=== PATIENT | female | born 1965 | race African-American/Black ===

== ENCOUNTER 2017-03-26 14:53 | Observation (INO) | payer BC, OTHER ==
--- NOTE | ~2017-03-26 | DS ---
Discharge Summary [facility] [address] [place]. [address] NAME: MONI BOURNE : 63 STATUS : DIS Rox PAT#: [id number] AGE: 52 ADM/REG DATE : 03/26/17 MR#: [id number] REPORT SERV DATE: 03/29/17 DICTATED BY: ZHANE WILLIAMSON DATE: 03/28/17 REPORT STATUS : Draft TRANSCRIBED BY: KELVIN DATE: 03/28/17 ADMISSION DATE: 03/26/2017 DISCHARGE DATE: 03/28/2017 DISCHARGE DIAGNOSES: Include: 1. Hypertension urgency. 2. Chest pain. 3. Palpitations. 4. Anxiety. 5. Leukocytosis. 6. Obesity. 7. Questionable obstructive sleep apnea. DISCHARGE MEDICATIONS: Are as follows: aspirin 81 mg daily, Prinivil 40 mg daily, Lopressor 25 mg p.o. twice a day, and prescriptions were written for those blood pressure medicines. HISTORY OF PRESENT ILLNESS: A pleasant 52-year-old, female, who presented with chest pain, shortness of breath, and hypertension. Please see initial H and P of Dr. Deshawn Veloz as patient was admitted to the Hospitalist Service for further evaluation and treatment. Lab work was ordered and followed including cardiac enzymes, and she was admitted for further rule out of her chest pain and control of her high blood pressure. PROCEDURES AND IMAGING DURING THIS ADMISSION: Include a nuclear myocardial imaging study that was an overall low risk stress test. Postexercise LVEF greater than 60%. No ischemia that is demonstrated. Also an echocardiogram which showed an ejection fraction of 55%, mild LVH but no significant valvular regurg or stenosis noted. CONTINUATION OF HOSPITAL COURSE: The patient was followed closely and underwent the above described imaging studies. She was given blood pressure medicine which did improve her overall blood pressures, and she described in interview sensations of shortness of breath particularly at night and when she woke up in the morning some gasping. She relates that she snores quite heavily and has a strong family history of obstructive sleep apnea so I have recommended her having outpatient sleep study. She did report that she does not currently have a primary care, and I have instructed her to follow up [facility] to establish a primary care within the next 2-3 weeks for review of her blood pressures to further discuss the medications and for this outpatient sleep study. Her symptoms of chest pain, shortness of breath, palpitations have resolved, and she was felt safe for discharge home on 03/28/2017 with the above medication regimen followup plan. Questions were answered at bedside, and the patient was in agreement with this plan going forward. MICHELLE/KELVIN Discharge Summary [address] [address] NAME: MONI BOURNE : 63 STATUS : DIS Rox PAT#: [id number] AGE: 52 ADM/REG DATE : 03/26/17 MR#: [id number] REPORT SERV DATE: 03/29/17 DICTATED BY: ZHANE WILLIAMSON DATE: 03/28/17 REPORT STATUS : Draft TRANSCRIBED BY: KELVIN DATE: 03/28/17 Zhane Williamson NP / [id number] CC: Hugh Dunbar
--- NOTE | ~2017-03-26 | HP ---
History And Physical [place] [address] [facility] [place]. [address] NAME: MONI BOURNE : 63 STATUS : ADM Rox PAT#: [id number] AGE: 52 ADM/REG DATE : 03/26/17 MR#: [id number] REPORT SERV DATE: 03/26/17 DICTATED BY: DESHAWN VELOZ DATE: 03/26/17 REPORT STATUS : Draft TRANSCRIBED BY: MODL DATE: 03/26/17 DATE OF ADMISSION: 03/26/2017 CHIEF COMPLAINT: Chest pain and shortness of breath. HISTORY OF PRESENT ILLNESS: Obtained from the patient as well as from the emergency room documents. There are no real prior medical records available for us to review. According to the information available, the patient is a pleasant 52-year-old black woman with upper and prior history of hypertension, on no medications presently, with no regular followup, who comes into the emergency room complaining of chest pain and shortness of breath. The patient stated the symptoms started on 03/23/2017, after she walked up some stairs. The patient complained of chest tightness, tightness over the left shoulder, worsening with exertion and relieved by rest. The pain was radiating toward the left shoulder and the back of the left shoulder, pressure-like, associated with palpitations and sweating. There is no fever or chills. No coughing reported. Generalized fatigue, not feeling well. The patient took recently antibiotics for a tooth infection and she was taking epif-xji-soqhgci aspirin on and off, last dose was on the day of admission. Because of her symptoms continuing to get progressively worse, the patient decided today to come to the emergency room. Upon arrival in the emergency room, the patient was noticed to have a blood pressure from 173 systolic up to 205 systolic and she had received treatment with hydralazine IV. She continued to complain of chest discomfort and feeling of "fluttering" in her chest and had remained extremely anxious about her condition. Because of the above presentation and risk factors, the patient was referred to the Hospitalist Service for further management and evaluation. PAST MEDICAL HISTORY: Apparently significant for hypertension, no medication. Please note, the patient had a prior stress test somewhere in 2011 that was apparently negative and she stated that she had an arteriogram/cardiac cath over 15 or 20 years ago. PAST SURGICAL HISTORY: Significant for cholecystectomy and D and C in the past. FAMILY HISTORY: Significant for CHF, cardiomyopathy, coronary artery disease, and diabetes. SOCIAL HISTORY: She lives with her family. She does not smoke. Denies alcohol abuse. Denies illicit or recreational drug abuse. ALLERGIES: NO KNOWN DRUG ALLERGIES. HOME MEDICATIONS: No regular prescribed home medications. Takes bycj-dbr-bhpetbt aspirin occasionally. REVIEW OF SYSTEMS: Per H and P, otherwise negative in all review of systems. Please note, the comprehensive review of system was obtained and pertinent positives were including in the H and P. PHYSICAL EXAMINATION: History And Physical [address] [address] NAME: MONI BOURNE : 63 STATUS : ADM Rox PAT#: [id number] AGE: 52 ADM/REG DATE : 03/26/17 MR#: [id number] REPORT SERV DATE: 03/26/17 DICTATED BY: DESHAWN VELOZ DATE: 03/26/17 REPORT STATUS : Draft TRANSCRIBED BY: KELVIN DATE: 03/26/17 GENERAL: Pleasant, cooperative, anxious. VITAL SIGNS: Upon arrival to the emergency room, blood pressure 173/98. Please note, the patient had a blood pressure of 212/105 during her initial stay and she had received IV hydralazine. Pulse 92. Respiratory rate 16. Temperature 98.5. Oxygen saturation 99% on room air. HEENT: Pupils are equal, round, and reactive to light. Extraocular movements are intact. Slight exophthalmos noticed. Throat, mild erythema. No exudate. No signs of tenderness. NECK: Supple. No JVD. No bruits. No thyromegaly. No lymph nodes. LUNGS: Bilateral air entry with few bibasilar rales. No wheezing. Good airway movement. HEART: Positive S1, S2. Regular rate and rhythm. Positive soft mitral regurgitation murmur at the apex. PMI nondisplaced by palpation. Slight reproducible chest pain upon palpation of the left precordial area. ABDOMEN: Positive bowel sounds. Soft, nontender. No guarding. No hepatosplenomegaly. Obese. EXTREMITIES: Decreased range of motion. No clubbing. No cyanosis. No edema. No calf tenderness. +2 pulses. NEUROLOGIC: Alert and oriented x3. Grossly nonfocal. Cranial nerves II through XII are grossly intact. Motor strength 5/5 symmetrical bilaterally. Deep tendon reflexes are 2/2 symmetrical bilaterally. BACK: Decreased range of motion, but no focal or localized tenderness. No CVA tenderness. SKIN: No rashes. No lacerations. SIGNIFICANT LABORATORY DATA: Chest x-ray (personal reading) showed no acute infiltrate, possible cardiomegaly. EKG (personal reading) showed normal sinus rhythm at 88 beats per minute. No acute ST elevation. Sodium 141, potassium 3.5, chloride 106, bicarb 28, BUN 10, creatinine 0.56, glucose 91, calcium 9.4, magnesium 2. Troponin I is less than 0.02. White cell count 11.1, hemoglobin 12.8, platelet count 408, INR 1.0. ASSESSMENT AND PLAN AND PROBLEM LIST: The patient is a pleasant 52-year-old black woman with chest pain and hypertensive urgency. IMPRESSION: 1. Cardiovascular. a. Hypertensive urgency. b. Chest pain with moderate risk factors for cardiac etiology. See cardiomegaly by chest x-ray. c. Palpitations by history. For all the above, we are going to admit the patient under telemetry setting under CDOU (clinical decision and observation unit). We are going to rule out for myocardial infarction by serial CK and troponin I, serial EKG, and we are going to continue treatment of her elevated blood pressure. Continue aspirin 162 mg p.o. daily and continue further assessment of cardiac risk factors including lipid profile. Check a 2D echo in a.m. and obtain nuclear medical stress test in a.m. 1. Anxiety, possible thoughts of her presentation. Provide emotional support. Continue to further evaluate to see if she needs long-term treatment. 2. Leukocytosis, elevated white cell count, uncertain etiology. No overt signs of History And Physical [address] [address] NAME: MONI BOURNE : 63 STATUS : ADM Rox PAT#: [id number] AGE: 52 ADM/REG DATE : 03/26/17 MR#: [id number] REPORT SERV DATE: 03/26/17 DICTATED BY: DESHAWN VELOZ DATE: 03/26/17 REPORT STATUS : Draft TRANSCRIBED BY: MODL DATE: 03/26/17 clinical infection at this moment. We are going to monitor likely reactive/leukemoid reaction. 3. Obesity. Recommended weight loss and moderate, structured exercise. PROGNOSIS: Good for this admission. Discussed with patient and patient's family. The questions were answered in full. Please note, the patient is a full code at this moment as discussed with the patient at bedside. Please note, also the written H and P and written orders and instructions. RF/MODL Deshawn Veloz M.D. / [id number] CC: Hugh Dunbar NP
[2017-03-26 14:01] LABS: BASOPHILS 0.4 %; BASOPHILS ABSOLUTE 0.04 10/3/uL (0.0-0.16); EOSINOPHILS 1.8 %; ER CBC TAT 0 Hrs 03 Mins; HEMATOCRIT 37.2 % (36.0-48.0); HEMOGLOBIN 12.8 g/dL (12.0-16.0); IMMATURE GRANULOCYTES 0.3 %; IMMATURE GRANULOCYTES ABSOLUTE 0.03 10/3/uL (0.0-0.11); LYMPHOCYTES 30.6 %; MEAN CORPUSCULAR HEMOGLOB 33.5 pg (26.0-34.0); MEAN CORPUSCULAR VOLUME 97.4 fL (80-100); MEAN PLATELET VOLUME 9.7 fL (9.2-13.0); MONOCYTES 4.9 %; MONOCYTES ABSOLUTE 0.54 10/3/uL (0.21-1.20); NEUTROPHILS ABSOLUTE 6.91 10/3/uL (2.02-8.40); PLATELET COUNT 408 10/3/uL (150-400); RBC DISTRIBUTION WIDTH 13.1 % (12.0-16.0); RED CELL COUNT 3.82 10/6/uL (4.0-5.6); WHITE BLOOD CELLS 11.1 10/3/uL (4.5-10.5)
[2017-03-26 14:02] LABS: MANUAL DIFF NO %; MEAN CORPUS HGB CONC 34.4 g/dL (32.0-36.0)
[2017-03-26 14:07] LABS: PROTIME (NOT ORD) 13.4 SEC (12.0-14.5)
[2017-03-26 14:08] LABS: PARTIAL THROMBO TIME 27.6 SEC (22.5-37.2)
[2017-03-26 14:16] LABS: BUN (BLOOD UREA NITROGEN) 10 MG/DL (6-23); CALCIUM, SERUM 9.4 MG/DL (8.5-10.4); CHEST PAIN PROFILE TAT 0 Hrs 18 Mins; CHLORIDE, SERUM 106 MMOL/L (96-112); CO2 (CARBON DIOXIDE) 28 MMOL/L (24-34); CREATININE 0.56 MG/DL (0.55-1.02); GFR AFRICAN AMERICAN 123 ML/MIN (>=60); GFR NON AFRICAN AMERICAN 106 ML/MIN (>=60); GLUCOSE, SERUM 91 MG/DL (60-99); POTASSIUM, SERUM 3.5 MMOL/L (3.5-5.3); SODIUM, SERUM 141 MMOL/L (135-148); TROPONIN I <0.02 NG/ML (<0.05)
[~2017-03-26 14:53] MED LIST: ASAB PO; GOODY'S EX-STR1 EAC1 PO; NEXIUM40 PO; PROTONIX PO
[2017-03-26 19:44] LABS: FREE T4 1.18 NG/DL (0.76-1.46); PHOSPHORUS, SERUM 2.7 MG/DL (2.5-4.5)
[2017-03-26 19:48] LABS: ULTRASENSITIVE TSH 0.782 MCIU/ML (0.358-3.740)
[2017-03-26 20:37] LABS: WBC (NOT ORDERED) (RFLEX) 0 (0-5)
[2017-03-26 20:59] LABS: ASCORBIC ACID (UR NOT ORDER) NEG (NEG); BILIRUBIN, URINE NEGATIVE (NEG); KETONE, URINE TRACE MG/DL (NEG); LEUKOCYTE ESTERASE(NOT OR NEG (NEG)
[2017-03-26 21:03] LABS: CPK 328 U/L (0-200); TROPONIN I <0.02 NG/ML (<0.05)
[2017-03-26 21:04] LABS: CK-MB 4.2 NG/ML
[2017-03-27 06:17] LABS: BASOPHILS 0.4 %; BASOPHILS ABSOLUTE 0.04 10/3/uL (0.0-0.16); EOSINOPHILS 2.6 %; EOSINOPHILS ABSOLUTE 0.29 10/3/uL (0.0-0.53); HEMATOCRIT 34.8 % (36.0-48.0); HEMOGLOBIN 11.9 g/dL (12.0-16.0); IMMATURE GRANULOCYTES 0.4 %; IMMATURE GRANULOCYTES ABSOLUTE 0.05 10/3/uL (0.0-0.11); LYMPHOCYTES ABSOLUTE 3.71 10/3/uL (0.67-4.30); MEAN CORPUS HGB CONC 34.2 g/dL (32.0-36.0); MEAN CORPUSCULAR HEMOGLOB 33.3 pg (26.0-34.0); MEAN CORPUSCULAR VOLUME 97.5 fL (80-100); MEAN PLATELET VOLUME 9.8 fL (9.2-13.0); MONOCYTES 6.5 %; MONOCYTES ABSOLUTE 0.73 10/3/uL (0.21-1.20); NEUTROPHILS 57.1 %; NEUTROPHILS ABSOLUTE 6.42 10/3/uL (2.02-8.40); PLATELET COUNT 405 10/3/uL (150-400); RBC DISTRIBUTION WIDTH 13.4 % (12.0-16.0); RED CELL COUNT 3.57 10/6/uL (4.0-5.6); WHITE BLOOD CELLS 11.2 10/3/uL (4.5-10.5)
[2017-03-27 06:19] LABS: MANUAL DIFF NO %
[2017-03-27 06:31] LABS: ALBUMIN 3.4 G/DL (3.5-5.0); BUN (BLOOD UREA NITROGEN) 13 MG/DL (6-23); CALCIUM, SERUM 9.1 MG/DL (8.5-10.4); CHLORIDE, SERUM 106 MMOL/L (96-112); CHOL/HDL RATIO(NOT ORDER) 3.7 (0-5); CHOLESTEROL 152 MG/DL (< 200); CO2 (CARBON DIOXIDE) 28 MMOL/L (24-34); CPK 272 U/L (0-200); CREATININE 0.62 MG/DL (0.55-1.02); GFR AFRICAN AMERICAN 119 ML/MIN (>=60); GFR NON AFRICAN AMERICAN 103 ML/MIN (>=60); GLUCOSE, SERUM 91 MG/DL (60-99); HDL CHOLESTEROL 41 MG/DL (> 49); LDL CHOLESTEROL 81 MG/DL (< 130); NON-HDL CHOLESTEROL 111 MG/DL (< 160); PHOSPHORUS, SERUM 2.7 MG/DL (2.5-4.5); POTASSIUM, SERUM 3.3 MMOL/L (3.5-5.3); SGOT(AST) 13 U/L (5-40); SGPT(ALT) 15 U/L (5-65); SODIUM, SERUM 141 MMOL/L (135-148); TOTAL BILIRUBIN 0.6 MG/DL (0-1.2); TOTAL PROTEIN 7.2 G/DL (6.0-8.5); TRIGLYCERIDE 152 MG/DL (< 150)
[2017-03-27 06:33] LABS: ALKALINE PHOSPHATASE 80 U/L (45-117); CK-MB 3.4 NG/ML; DIRECT BILIRUBIN 0.1 MG/DL (0.0-0.4); INDIRECT BILIRUBIN(NOT ORDER) 0.5 MG/DL (0.1-0.9)
[2017-03-28 05:58] LABS: BUN (BLOOD UREA NITROGEN) 12 MG/DL (6-23); CALCIUM, SERUM 9.8 MG/DL (8.5-10.4); CHLORIDE, SERUM 104 MMOL/L (96-112); CO2 (CARBON DIOXIDE) 24 MMOL/L (24-34); CREATININE 0.54 MG/DL (0.55-1.02); GFR AFRICAN AMERICAN 125 ML/MIN (>=60); GFR NON AFRICAN AMERICAN 108 ML/MIN (>=60); GLUCOSE, SERUM 106 MG/DL (60-99); POTASSIUM, SERUM 3.9 MMOL/L (3.5-5.3); SODIUM, SERUM 137 MMOL/L (135-148)
[2017-03-28] MEDS ORDERED: LOP25 PO (16:24)
[2017-03-28] MEDS ORDERED: LISINOPRIL40 MG PO (16:24)
== END 2017-03-28 16:40 | disposition home or self-care (01) ==
LOC: ER 14:53 → CDU1 15:52 → CDU2 16:57
PROVIDERS: Emergency Medicine; Internal Medicine
DX: I16.0 Hypertensive urgency (principal); R07.9 Chest pain, unspecified; R00.2 Palpitations; F41.9 Anxiety disorder, unspecified; D72.829 Elevated white blood cell count, unspecified; E66.9 Obesity, unspecified; Z68.41 Body mass index [BMI] 40.0-44.9, adult; Z79.82 Long term (current) use of aspirin; Z79.899 Other long term (current) drug therapy; Z90.49 Acquired absence of other specified parts of digestive tract
CPT/HCPCS: 71010; 78452; 80048; 80061; 80069; 80076; 81001; 82550; 82553; 83735; 83880; 84100; 84132; 84439; 84443; 84484; 85025; 85610; 85730; 93005; 93017; 93306; 96372; 96374; 96376; 99285; A9270-GY; A9502; G0378; J0360